=== PATIENT | female | born 1980 | race Caucasian/White ===

== ENCOUNTER 2018-04-05 00:42 | Inpatient (IN) | payer MEDICAID | END 2018-04-07 10:04 | disposition home or self-care (01) | LOC: ER 00:42 → OVERFLOW 05:29 → CENTRAL 18:00 | PROC: 0FT44ZZ Resection of Gallbladder, Percutaneous Endoscopic Approach (ICD-10-PCS; principal; 2018-04-06 07:00) | DX: K56.609 Unspecified intestinal obstruction, unspecified as to partial versus complete obstruction (principal); K81.9 Cholecystitis, unspecified; D47.3 Essential (hemorrhagic) thrombocythemia; D53.9 Nutritional anemia, unspecified; E87.6 Hypokalemia; R79.89 Other specified abnormal findings of blood chemistry; E86.0 Dehydration; G43.A1 Cyclical vomiting, in migraine, intractable; D50.9 Iron deficiency anemia, unspecified; R59.1 Generalized enlarged lymph nodes ==

== ENCOUNTER 2018-05-01 09:59 | Inpatient (IN) | payer MEDICAID | END 2018-05-04 13:50 | disposition home or self-care (01) | LOC: TELE-WESTW 05-02 00:04 → ER 09:59 → TELE 16:13 → WEST WING 05-02 17:14 → TELE-WESTW 23:13 | DX: K52.9 Noninfective gastroenteritis and colitis, unspecified (principal); E43 Unspecified severe protein-calorie malnutrition; D64.9 Anemia, unspecified; E86.0 Dehydration; K27.9 Peptic ulcer, site unspecified, unspecified as acute or chronic, without hemorrhage or perforation; Z79.891 Long term (current) use of opiate analgesic; E87.1 Hypo-osmolality and hyponatremia ==

== ENCOUNTER 2018-06-08 09:38 | Emergency (ER) | payer MEDICAID ==
[~2018-06-08] VITALS: Ht 167.6 cm; Wt 45.4 kg
[~2018-06-08 09:38] MED LIST: FER325T PO; METH10T PO
[2018-06-08 12:01] LABS: Basophils # (auto) 0 uL; Basophils % (auto) 0.1 % (0.0-2.0); Eosinophils # (auto) 0.1 uL; Eosinophils % (auto) 0.4 % (0.0-7.0); Hematocrit 37.4 % (36.0-46.0); Hemoglobin 11.8 g/dL (12.2-16.2); Lymphocytes # (auto) 3.1 uL; Lymphocytes % (auto) 20.1 % (10.0-50.0); Mean Corpuscular Hemoglobin 23.3 pg (28.0-32.0); Mean Corpuscular Hgb Conc. 31.4 g/dL (32.0-36.0); Mean Corpuscular Volume 74.2 fL (80.0-100.0); Monocytes # (auto) 0.7 uL; Monocytes % (auto) 4.5 % (0.0-12.0); Neutrophils # (auto) 11.5 uL; Neutrophils % (auto) 74.9 % (37.0-80.0); Platelet Count (auto) 643 10^3/uL (140-450); Red Blood Cells 5.04 10^6/uL (4.0-5.20); White Blood Cell 15.3 10^3/uL (4.4-10.8)
[2018-06-08 12:03] LABS: Red Cell Distribution Width 20.3 % (11.8-14.3)
[2018-06-08 12:19] LABS: Calcium 8.1 mg/dL (8.5-10.1); Potassium 3.6 mmol/L (3.5-5.1)
[2018-06-08 12:22] LABS: BUN/Creatinine Ratio 40.5; Bilirubin, Total 0.2 mg/dL (0.2-1.0); Total Protein 6.3 g/dL (6.4-8.2)
[2018-06-08 14:02] VITALS: BP 105/76
[2018-06-08 14:23] LABS: Urine Bacteria FEW /hpf (None Seen); Urine Blood Negative /uL (Negative); Urine Specific Gravity 1.006 (1.001-1.035); Urine WBC 1 /hpf (0 - 5)
== END 2018-06-08 14:03 | disposition home or self-care (01) ==
LOC: EDBD 09:38 → ER 09:38
DX: S01.01XA Laceration without foreign body of scalp, initial encounter (principal); R42 Dizziness and giddiness; R51 Headache; Z90.49 Acquired absence of other specified parts of digestive tract; W19.XXXA Unspecified fall, initial encounter; Y93.89 Activity, other specified; Y92.89 Other specified places as the place of occurrence of the external cause; Y99.8 Other external cause status
CPT/HCPCS: 12002; 36415; 70450; 80053; 81001; 82962; 85025; 93005

== ENCOUNTER 2018-06-16 10:27 | Emergency (ER) | payer MEDICAID ==
[~2018-06-16] VITALS: Ht 162.6 cm; Wt 47.6 kg
[2018-06-16 10:32] VITALS: BP 107/72
== END 2018-06-16 11:02 | disposition home or self-care (01) ==
LOC: ER 10:27
DX: S01.01XD Laceration without foreign body of scalp, subsequent encounter (principal); Z90.49 Acquired absence of other specified parts of digestive tract; Z88.6 Allergy status to analgesic agent; X58.XXXD Exposure to other specified factors, subsequent encounter

== ENCOUNTER 2019-07-07 11:23 | Inpatient (IN) | payer MEDICAID ==
[~2019-07-07] VITALS: Ht 162.6 cm; Wt 47.4 kg
[~2019-07-07 11:23] MED LIST changes: +ALPR0.5T PO
[2019-07-07 11:57] LABS: Eosinophils # (auto) 0 10 ^3/uL (0-0.8)
[2019-07-07 11:59] LABS: Basophils # (auto) 0 10 ^3/uL (0-0.2); Basophils % (auto) 0.3 % (0.0-2.0); Hematocrit 38.2 % (36.0-46.0); Hemoglobin 12.6 g/dL (12.2-16.2); Lymphocytes # (auto) 1.7 10 ^3/uL (0.4-5.4); Lymphocytes % (auto) 16.3 % (10.0-50.0); Mean Corpuscular Hemoglobin 25.8 pg (28.0-32.0); Mean Corpuscular Volume 78.1 fL (80.0-100.0); Monocytes # (auto) 0.4 10 ^3/uL (0-1.3); Monocytes % (auto) 3.7 % (0.0-12.0); Neutrophils # (auto) 8.4 10 ^3/uL (1.6-8.6); Neutrophils % (auto) 79.7 % (37.0-80.0); Nucleated Red Blood Cells % 0.1 %; Platelet Count (auto) 746 10^3/uL (140-450); Red Blood Cells 4.89 10^6/uL (4.0-5.20); Red Cell Distribution Width 16.2 % (11.8-14.3); White Blood Cell 10.5 10^3/uL (4.4-10.8)
[2019-07-07] MEDS ORDERED: PANTOPRAZOLE 40 MG/10 ML VIAL INJ IV STA (12:02)
[2019-07-07] MEDS ORDERED: SODIUM CHLORIDE 0.9% 1,000 ML IV ONE (12:02)
[2019-07-07] MEDS ORDERED: SODIUM CHLORIDE 0.9% 500 ML IVB ONE (12:02)
[2019-07-07] MEDS ORDERED: IOHEXOL 300 MG/ML 100ML BOTTLE IJ ONE (12:13)
[2019-07-07] MEDS ORDERED: DONNATAL 5ml ORAL Elix (BELLADONNA ALK-PHENOBARB) PO ONE (12:15)
[2019-07-07] MEDS: PROMETHAZINE HCL 25 MG/ML 1ML IV PRN ×2 (12:25→22:36)
[2019-07-07 12:31] LABS: Albumin 1.2 g/dL (3.4-5.0); Anion Gap 13 (5-15); Calcium 7.4 mg/dL (8.5-10.1); Carbon Dioxide 33 mmol/L (21-32); Chloride 89 mmol/L (98-107); Glucose 107 mg/dL (74-106); Lipase 54 U/L (73-393); Sodium 135 mmol/L (136-145)
[2019-07-07 12:37] LABS: Alanine Aminotransferase 28 U/L (13-56); Alkaline Phosphatase 124 U/L (45-117); Aspartate Aminotransferase 51 U/L (15-37); Bilirubin, Total 0.2 mg/dL (0.2-1.0); GFR African American 97 mL/min; GFR Non-African American 80 mL/min; Total Protein 5.5 g/dL (6.4-8.2)
[2019-07-07 12:45] LABS: BUN/Creatinine Ratio 29.4; Blood Urea Nitrogen 25 mg/dL (7-18)
[2019-07-07 12:47] LABS: Beta HCG, Quantitative < 1 mlU/mL (1-3)
[2019-07-07 12:51] LABS: Thyroid Stimulating Hormone 4.46 uIU/mL (0.358-3.74)
[2019-07-07] MEDS ORDERED: POTASSIUM EFFERVESENT TAB 25 MEQ PO ONE (13:00)
[2019-07-07 13:09] LABS: Urine Bacteria NONE SEEN /hpf (None Seen); Urine Blood TRACE /uL (Negative); Urine Hyaline Cast FEW /lpf (0 - 2); Urine Mucus FEW (None Seen); Urine Specific Gravity 1.034 (1.001-1.035); Urine WBC 8 /hpf (0 - 5)
[2019-07-07 13:22] LABS: Amphetamine Screen, Urine NEGATIVE (NEGATIVE); Barbiturate Scree,Urine NEGATIVE (NEGATIVE); Benzodiazephine Screen, Urine POSITIVE (NEGATIVE); Cannabinoid Screen, Urine NEGATIVE (NEGATIVE); Cocaine Screen, Urine NEGATIVE (NEGATIVE); Phencyclidine Screen, Urine NEGATIVE (NEGATIVE)
[2019-07-07 13:31] LABS: Opiate Scree,Urine NEGATIVE (NEGATIVE)
[2019-07-07 13:47] LABS: Alcohol, Urine < 3.0 mg/dL (0-5)
[2019-07-07] MEDS ORDERED: POTASSIUM CHLORIDE 40 MEQ, LIDOCAINE 1% (LOCAL ANESTH.) 4 ML in SODIUM CHL 0.9% 100 ML IV ONE (14:30)
[2019-07-07] MEDS ORDERED: DEXTROSE 50% SYRINGE 50 ML IV ONE (14:46)
[2019-07-07] MEDS ORDERED: DEXTROSE (50%) 50ML SYRG IV ONE (15:00)
[2019-07-07] MEDS ORDERED: ALBUMIN 25% 100 ML IV ONE (16:15)
[2019-07-07] MEDS ORDERED: LEVOTHYROXINE SODIUM 25 MCG TAB PO ONE (16:15)
[2019-07-07] MEDS: MAGNESIUM SULFATE 1GM/100ML 100 ML IV SCH ×4 (16:15→17:34)
[2019-07-07] MEDS ORDERED: MORPHINE SULF INJ 2 MG/ML SYRINGE 1ML IV PRN (16:45)
[2019-07-07] MEDS ORDERED: NITROGLYCERIN 0.4 MG SL TAB SL PRN (16:45)
[2019-07-07] MEDS ORDERED: ONDANSETRON HCL 4 MG/2 ML VIAL IV PRN (16:45)
[2019-07-07] MEDS: D5W/ SOD CHL 0.9%/KCL 20MEQ 1,000 ML IV SCH (17:14)
[2019-07-07] MEDS: levoFLOXacin 500MG 100 ML IV SCH (17:46)
[2019-07-07 19:44] VITALS: BP 99/70
[2019-07-07] MEDS: metroNIDAZOLE 500MG/100ML 100 ML IV SCH (21:17)
[2019-07-07 22:00] VITALS: BP 99/70
[2019-07-07] MEDS: HYDROmorphone HCL 2 MG/ML VL IV PRN (22:36)
[2019-07-08] VITALS (7 sets, daily range): BP systolic 81–120; BP diastolic 55–79
[2019-07-08] MEDS ORDERED: TEMAZEPAM 15 MG CAP PO PRN (00:15)
[2019-07-08] MEDS: D5W/ SOD CHL 0.9%/KCL 20MEQ 1,000 ML IV SCH ×2 (03:38→14:54)
[2019-07-08] MEDS: PROMETHAZINE HCL 25 MG/ML 1ML IV PRN ×3 (04:37→17:29)
[2019-07-08] MEDS: HYDROmorphone HCL 2 MG/ML VL IV PRN ×3 (04:37→17:49)
[2019-07-08] MEDS: metroNIDAZOLE 500MG/100ML 100 ML IV SCH ×3 (04:37→21:41)
[2019-07-08 05:48] LABS: Basophils # (auto) 0 10 ^3/uL (0-0.2); Basophils % (auto) 0.2 % (0.0-2.0); Eosinophils # (auto) 0 10 ^3/uL (0-0.8); Eosinophils % (auto) 0.1 % (0.0-7.0); Hematocrit 35.2 % (36.0-46.0); Hemoglobin 11.6 g/dL (12.2-16.2); Lymphocytes # (auto) 1.3 10 ^3/uL (0.4-5.4); Mean Corpuscular Hgb Conc. 32.9 g/dL (32.0-36.0); Mean Corpuscular Volume 78.9 fL (80.0-100.0); Monocytes # (auto) 0.5 10 ^3/uL (0-1.3); Monocytes % (auto) 5.8 % (0.0-12.0); Neutrophils # (auto) 6.5 10 ^3/uL (1.6-8.6); Neutrophils % (auto) 77.9 % (37.0-80.0); Platelet Count (auto) 506 10^3/uL (140-450); Red Blood Cells 4.47 10^6/uL (4.0-5.20); Red Cell Distribution Width 16.8 % (11.8-14.3); White Blood Cell 8.4 10^3/uL (4.4-10.8)
[2019-07-08 06:08] LABS: Albumin 1.6 g/dL (3.4-5.0); BUN/Creatinine Ratio 26.4; Bilirubin, Total 0.4 mg/dL (0.2-1.0); Calcium 7.5 mg/dL (8.5-10.1); Total Protein 5.1 g/dL (6.4-8.2)
[2019-07-08 06:16] LABS: Potassium 2.7 mmol/L (3.5-5.1)
[2019-07-08] MEDS: PANTOPRAZOLE 40 MG/10 ML VIAL INJ IV SCH (09:32)
[2019-07-08] MEDS: levoFLOXacin 500MG 100 ML IV SCH (09:32)
[2019-07-08] MEDS ORDERED: levoFLOXacin 750MG 150 ML IV SCH (10:00)
[2019-07-08] MEDS ORDERED: POTASSIUM CHL 20MEQ/100ML 100 ML IV SCH (13:00)
[2019-07-08] MEDS ORDERED: ALPRAZolam 0.5 MG TAB PO PRN (13:00)
[2019-07-08] MEDS ORDERED: GASTROGRAFIN 120 ML SOL ONE (13:08)
[2019-07-08] MEDS: POTASSIUM CHL 20MEQ/100ML 100 ML IV SCH ×2 (14:54→17:28)
[2019-07-08] MEDS: ALPRAZolam 0.5 MG TAB PO PRN (21:42)
[2019-07-09] VITALS (7 sets, daily range): BP systolic 76–121; BP diastolic 47–61
[2019-07-09] MEDS: HYDROmorphone HCL 2 MG/ML VL IV PRN (00:37)
[2019-07-09] MEDS: PROMETHAZINE HCL 25 MG/ML 1ML IV PRN (00:38)
[2019-07-09] MEDS: D5W/ SOD CHL 0.9%/KCL 20MEQ 1,000 ML IV SCH ×3 (02:49→18:48)
[2019-07-09] MEDS: metroNIDAZOLE 500MG/100ML 100 ML IV SCH ×3 (05:36→21:50)
[2019-07-09 06:59] LABS: Albumin 1.1 g/dL (3.4-5.0); BUN/Creatinine Ratio 28.6; Bilirubin, Total 0.3 mg/dL (0.2-1.0); Calcium 7.2 mg/dL (8.5-10.1); Total Protein 3.9 g/dL (6.4-8.2)
[2019-07-09 07:01] LABS: Potassium 2.9 mmol/L (3.5-5.1)
[2019-07-09] MEDS: PANTOPRAZOLE 40 MG/10 ML VIAL INJ IV SCH (10:06)
[2019-07-09] MEDS: levoFLOXacin 500MG 100 ML IV SCH (10:06)
[2019-07-09] MEDS: METHADONE HCL 10 MG TAB PO SCH (10:06)
[2019-07-09] MEDS: POTASSIUM CHL 20MEQ/100ML 100 ML IV SCH ×3 (12:45→16:30)
[2019-07-09] MEDS: ALPRAZolam 0.5 MG TAB PO PRN (21:50)
[2019-07-09] MEDS ORDERED: ALBUMIN 5% 250 ML IV ONE (22:30)
[2019-07-10 05:00] VITALS: BP 85/77
[2019-07-10] MEDS: D5W/ SOD CHL 0.9%/KCL 20MEQ 1,000 ML IV SCH ×3 (05:12→09:26)
[2019-07-10] MEDS: metroNIDAZOLE 500MG/100ML 100 ML IV SCH ×3 (05:12→22:45)
[2019-07-10 05:15] VITALS: BP 90/59
[2019-07-10 06:49] LABS: Albumin 1.6 g/dL (3.4-5.0)
[2019-07-10 06:56] LABS: Bilirubin, Direct 0.1 mg/dL (0-0.2); Bilirubin, Total 0.2 mg/dL (0.2-1.0); Magnesium 1.9 mg/dL (1.6-2.6); Total Protein 4.8 g/dL (6.4-8.2)
[2019-07-10 08:00] VITALS: BP 91/66
[2019-07-10] MEDS: PANTOPRAZOLE 40 MG/10 ML VIAL INJ IV SCH (09:21)
[2019-07-10] MEDS: levoFLOXacin 500MG 100 ML IV SCH (09:21)
[2019-07-10] MEDS: METHADONE HCL 10 MG TAB PO SCH (09:25)
[2019-07-10 12:00] VITALS: BP 90/60
[2019-07-10] MEDS: SODIUM CHLORIDE 0.9% 1,000 ML IV SCH ×2 (13:45→20:54)
[2019-07-10] MEDS ORDERED: MAGNESIUM SULFATE 1GM/100ML 100 ML IV ONE (13:45)
[2019-07-10] MEDS ORDERED: SODIUM CHLORIDE 0.9% 1,000 ML IV SCH (14:10)
[2019-07-10 16:49] VITALS: BP 96/67
[2019-07-10] MEDS: HYDROmorphone HCL 2 MG/ML VL IV PRN (20:46)
[2019-07-10] MEDS: PROMETHAZINE HCL 25 MG/ML 1ML IV PRN (20:47)
[2019-07-10 21:57] VITALS: BP 95/67
[2019-07-10] MEDS: ALPRAZolam 0.5 MG TAB PO PRN (22:40)
[2019-07-11 04:51] VITALS: BP 100/67
[2019-07-11 05:16] LABS: Mean Corpuscular Hemoglobin 26.3 pg (28.0-32.0); Mean Corpuscular Hgb Conc. 32.5 g/dL (32.0-36.0); Mean Corpuscular Volume 80.9 fL (80.0-100.0); Platelet Count (auto) 511 10^3/uL (140-450); Red Cell Distribution Width 18.3 % (11.8-14.3); White Blood Cell 4.2 10^3/uL (4.4-10.8)
[2019-07-11 05:19] LABS: Band Neutrophils % (manual) 0; Basophils % (manual) 0 (0.0-2.0); Blast Cells 0; Metamyelocytes % 0; Monocytes % (manual) 0 (0-12); Myelocytes % 0; Promyelocytes % 0; Reactive Lymphocytes 0
[2019-07-11 05:36] LABS: Calcium 7.4 mg/dL (8.5-10.1); Potassium 4.9 mmol/L (3.5-5.1)
[2019-07-11] MEDS: metroNIDAZOLE 500MG/100ML 100 ML IV SCH ×2 (05:37→13:48)
[2019-07-11 05:38] LABS: BUN/Creatinine Ratio 4.5
[2019-07-11 05:56] LABS: Eosinophils % (manual) 1 (0-7); Lymphocytes % (manual) 67 (10.0-50.0)
[2019-07-11 08:46] VITALS: BP 106/61
[2019-07-11] MEDS: PANTOPRAZOLE 40 MG/10 ML VIAL INJ IV SCH (09:19)
[2019-07-11] MEDS: levoFLOXacin 500MG 100 ML IV SCH (09:19)
[2019-07-11] MEDS: METHADONE HCL 10 MG TAB PO SCH (09:22)
[2019-07-11] MEDS: HYOSCYAMINE SULF 0.125 MG ODT TAB PO PRN ×2 (11:42→17:14)
[2019-07-11] MEDS: SODIUM CHLORIDE 0.9% 1,000 ML IV SCH (11:43)
[2019-07-11 12:30] VITALS: BP 120/67
[2019-07-11] MEDS ORDERED: CIPR500T4 PO (14:51)
[2019-07-11] MEDS ORDERED: HYOS0.1250 PO (14:51)
[2019-07-11] MEDS ORDERED: METR500T PO (14:51)
[2019-07-11] MEDS: PROMETHAZINE HCL 25 MG/ML 1ML IV PRN (15:15)
[2019-07-11 16:28] VITALS: BP 94/57
[2019-07-11] MEDS ORDERED: CIPROFLOXACIN HCL 500 MG TAB PO SCH (22:00)
[2019-07-11] MEDS ORDERED: metroNIDAZOLE 500 MG TAB PO SCH (22:00)
[2019-07-12] MEDS ORDERED: PANTOPRAZOLE 40 MG TAB PO SCH (10:00)
== END 2019-07-11 19:10 | disposition home or self-care (01) | DRG 247 ==
LOC: ER 11:23 → EDBD 11:23 → TELE 11:24 → TELE-CENTR 19:44
PROVIDERS: ADMIT Nurse Practitioner Acute Care; ATTEND Internal Medicine
DX: K56.600 Partial intestinal obstruction, unspecified as to cause (principal); E43 Unspecified severe protein-calorie malnutrition; G93.41 Metabolic encephalopathy; R64 Cachexia; E87.6 Hypokalemia; K76.0 Fatty (change of) liver, not elsewhere classified; D64.9 Anemia, unspecified; R79.89 Other specified abnormal findings of blood chemistry; E83.42 Hypomagnesemia; E03.9 Hypothyroidism, unspecified; K50.80 Crohn's disease of both small and large intestine without complications; F43.10 Post-traumatic stress disorder, unspecified; F41.9 Anxiety disorder, unspecified; Z88.6 Allergy status to analgesic agent; Z79.899 Other long term (current) drug therapy; Z90.49 Acquired absence of other specified parts of digestive tract; Z82.49 Family history of ischemic heart disease and other diseases of the circulatory system; Z81.8 Family history of other mental and behavioral disorders; Z88.8 Allergy status to other drugs, medicaments and biological substances; Z68.1 Body mass index [BMI] 19.9 or less, adult
CPT/HCPCS: 36415; 70450; 71045; 74177; 74250; 80048; 80053; 80076; 80307; 81001; 82962; 83605; 83690; 83735; 84132; 84443; 84484; 84702; 85007; 85025; 85027; 85652; 86141; 87040; 93005; 96365; 96368; C9113; G0378; J1956; J2001; J3480; J3490; P9047

== ENCOUNTER 2021-08-09 09:03 | Emergency (ER) | payer MEDICAID ==
[~2021-08-09] VITALS: Ht 162.6 cm; Wt 36.3 kg
[~2021-08-09 09:03] MED LIST changes: +CIPR500T4 PO; +HYOS0.1250 PO; +METR500T PO
[2021-08-09 09:14] VITALS: BP 110/71
== END 2021-08-09 13:58 | disposition left against medical advice (07) ==
LOC: ER 09:03
DX: R10.84 Generalized abdominal pain (principal); M54.50 Low back pain, unspecified; Z53.21 Procedure and treatment not carried out due to patient leaving prior to being seen by health care provider

== ENCOUNTER 2022-12-15 17:15 | Emergency (ER) | payer MEDICAID ==
[~2022-12-15] VITALS: Ht 162.6 cm; Wt 43.2 kg
[2022-12-15 19:00] LABS: Basophils # (auto) 0 10 ^3/uL (0-0.2); Basophils % (auto) 0.4 % (0.0-2.0); Eosinophils # (auto) 0 10 ^3/uL (0-0.8); Hemoglobin 9.4 g/dL (12.2-16.2); Lymphocytes # (auto) 0.8 10 ^3/uL (0.4-5.4); Neutrophils # (auto) 2.7 10 ^3/uL (1.6-8.6); Neutrophils % (auto) 71.5 % (37.0-80.0)
[2022-12-15 19:01] LABS: Hematocrit 29.4 % (36.0-46.0); Lymphocytes % (auto) 21.1 % (10.0-50.0); Mean Corpuscular Hemoglobin 22.7 pg (28.0-32.0); Mean Corpuscular Hgb Conc. 32.1 g/dL (32.0-36.0); Mean Corpuscular Volume 70.7 fL (80.0-100.0); Monocytes # (auto) 0.3 10 ^3/uL (0-1.3); Red Blood Cells 4.16 10^6/uL (4.0-5.20); White Blood Cell 3.8 10^3/uL (4.4-10.8)
[2022-12-15 19:12] LABS: Alanine Aminotransferase 25 U/L (7-40); Albumin 1.8 g/dL (3.2-4.8); Alkaline Phosphatase 349 U/L (46-116); Anion Gap 10 (5-15); Aspartate Aminotransferase 34 U/L (13-40); BUN/Creatinine Ratio 34.1 (10.0-20.0); Bilirubin, Total 0.2 mg/dL (0.2-1.0); Blood Urea Nitrogen 15 mg/dL (9-23); Carbon Dioxide 26 mmol/L (20-30); Chloride 103 mmol/L (98-107); Glucose 88 mg/dL (74-106); Potassium 3.4 mmol/L (3.5-5.1); Sodium 139 mmol/L (136-145); Total Protein 4.7 g/dL (5.7-8.2)
[2022-12-15 19:13] LABS: Red Cell Distribution Width 22.2 % (11.8-14.3)
[2022-12-15 19:22] LABS: Calcium 5.5 mg/dL (8.7-10.4)
[2022-12-15 19:42] LABS: Amphetamine Screen, Urine Neg (NEGATIVE); Barbiturate Scree,Urine Neg (NEGATIVE); Benzodiazephine Screen, Urine Neg (NEGATIVE); Cannabinoid Screen, Urine Neg (NEGATIVE); Cocaine Screen, Urine Neg (NEGATIVE); Opiate Scree,Urine Neg (NEGATIVE); Phencyclidine Screen, Urine Neg (NEGATIVE)
[2022-12-15 20:04] VITALS: PULSE 81; RESP 21; O2SAT 96
[2022-12-15] MEDS ORDERED: ALPRAZolam 0.5 MG TAB PO ONE (21:45)
[2022-12-15] MEDS ORDERED: HYDROcodone-ACET 5/325MG TAB PO ONE (21:45)
[2022-12-15 22:37] VITALS: BP 91/59; PULSE 99; RESP 20; TEMP 97.9; O2SAT 98
== END 2022-12-15 22:51 | disposition home or self-care (01) ==
LOC: ER 17:15
DX: M54.9 Dorsalgia, unspecified (principal); D64.9 Anemia, unspecified; F15.23 Other stimulant dependence with withdrawal; F11.23 Opioid dependence with withdrawal; M62.838 Other muscle spasm; F41.9 Anxiety disorder, unspecified; D75.839 Thrombocytosis, unspecified; Z79.1 Long term (current) use of non-steroidal anti-inflammatories (NSAID); Z79.899 Other long term (current) drug therapy; Z88.8 Allergy status to other drugs, medicaments and biological substances; V43.52XA Car driver injured in collision with other type car in traffic accident, initial encounter; Y93.89 Activity, other specified; Y92.410 Unspecified street and highway as the place of occurrence of the external cause; Y99.8 Other external cause status
CPT/HCPCS: 36415; 80053; 80307; 81025; 84484; 85025; 93005